=== PATIENT | male | born 1990 | race Caucasian/White ===

== ENCOUNTER 2017-06-29 15:29 | Emergency (ER) | payer OTHER ==
[~2017-06-29] VITALS: Ht 177.8 cm; Wt 100.0 kg
[2017-06-29 15:47] VITALS: BP 131/85; PULSE 104; RESP 18; TEMP 98.9; O2SAT 98
[2017-06-29] MEDS ORDERED: CENTCHW4 PO (15:57)
[2017-06-29] MEDS ORDERED: SODIUM CHLOR 0.9% 1000 ML INJ 1,000 ML IV ONE (16:00)
[2017-06-29 16:13] LABS: AUTOMATED NEUTROPHIL # 3.8 TH/MM3 (1.8-7.7); BASOPHIL % 0.2 % (0.0-2.0); EOSINOPHIL # 0.1 TH/MM3 (0-0.4); EOSINOPHIL % 0.9 % (0.0-4.0); HEMATOCRIT 45.1 % (39.0-51.0); HEMOGLOBIN 15.6 GM/DL (13.0-17.0); LYMPH % 23.7 % (9.0-44.0); LYMPHOCYTE # 1.5 TH/MM3 (1.0-4.8); MEAN CELL VOLUME 86.7 FL (80.0-100.0); MEAN CORPUSCULAR HGB CONC 34.6 % (32.0-36.0); MEAN PLATELET VOLUME 10.2 FL (7.0-11.0); MONO % 14.9 % (0.0-8.0); MONOCYTE # 0.9 TH/MM3 (0-0.9); NEUT % 60.3 % (16.0-70.0); PLATELET COUNT 141 TH/MM3 (150-450); RED CELL DISTRIBUTION WIDTH 13.6 % (11.6-17.2); WHITE BLOOD COUNT 6.4 TH/MM3 (4.0-11.0)
--- NOTE | 2017-06-29 16:14 | PD ---
HPI Chief Complaint: General Weakness Time Seen by Provider: 15:45 Travel History International Travel<30 days: No Contact w/Intl Traveler<30days: No Traveled to known affect area: No History of Present Illness HPI Patient is a 26-year-old male who presents to emergency room with complaints of generalized weakness for the past 5 days. Patient reports that he has been having myalgias, fevers and chills, sore throat. Reports no cough/congestion. 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 He has been taking ibuprofen and acetaminophen without relief of symptoms PFSH Past Medical History Medical History: Denies Significant Hx Diminished Hearing: No Tetanus Vaccination: > 5 Years Influenza Vaccination: Yes Past Surgical History Surgical History: No Previous Surgery Social History Alcohol Use: Yes (OCASSIONALLY) Tobacco Use: No Substance Use: No Allergies-Medications (Allergen,Severity, Reaction): Coded Allergies: No Known Allergies (Verified Allergy, Unknown, 06/29/17) Reported Meds & Prescriptions Reported Meds & Active Scripts Active Reported Centrum (Multiple Vitamins W/ Minerals) 1 Chew 1 Tab PO DAILY Review of Systems General / Constitutional: Positive: Fever, Chills Eyes: No: Visual changes HENT: Positive: Sore Throat, No: Headaches, Neck Stiffness, Neck Pain Cardiovascular: No: Chest Pain or Discomfort Respiratory: No: Shortness of Breath Gastrointestinal: No: Abdominal Pain Genitourinary: No: Dysuria Musculoskeletal: No: Pain Skin: No Rash Neurologic: No: Weakness Psychiatric: No: Depression Endocrine: No: Polydipsia Hematologic/Lymphatic: No: Easy Bruising Physical Exam Narrative GENERAL: Well-nourished, well-developed patient. SKIN: Focused skin assessment warm/dry. HEAD: Normocephalic. EYES: No scleral icterus. No injection or drainage. NECK: Supple, trachea midline. No JVD, + Cervical lymphadenopathy, posterior pharynx with erythema and pustules CARDIOVASCULAR: Regular rate and rhythm without murmurs, gallops, or rubs. RESPIRATORY: Breath sounds equal bilaterally. No accessory muscle use. GASTROINTESTINAL: Abdomen soft, non-tender, nondistended. MUSCULOSKELETAL: No cyanosis, or edema. BACK: Nontender without obvious deformity. No CVA tenderness. Data Data Last Documented VS Vital Signs Date Time Temp Pulse Resp B/P (MAP) Pulse Ox O2 Delivery O2 Flow Rate FiO2 06/29/17 15:47 98.9 104 18 131/85 (100) 98 06/29/17 15:40 Room Air Orders Orders Complete Blood Count With Diff (06/29/17 15:51) Basic Metabolic Panel (Bmp) (06/29/17 15:51) Monoscreen (06/29/17 15:51) Group A Rapid Strep Screen (06/29/17 15:51) Influenzae A/B Antigen (06/29/17 15:51) Iv Access Insert/Monitor (06/29/17 15:51) Sodium Chlor 0.9% 1000 Ml Inj (Ns 1000 M (06/29/17 16:00) Labs Laboratory Tests Test 06/29/17 15:55 White Blood Count 6.4 TH/MM3 Red Blood Count 5.20 MIL/MM3 Hemoglobin 15.6 GM/DL Hematocrit 45.1 % Mean Corpuscular Volume 86.7 FL Mean Corpuscular Hemoglobin 30.0 PG Mean Corpuscular Hemoglobin Concent 34.6 % Red Cell Distribution Width 13.6 % Platelet Count 141 TH/MM3 Mean Platelet Volume 10.2 FL Neutrophils (%) (Auto) 60.3 % Lymphocytes (%) (Auto) 23.7 % Monocytes (%) (Auto) 14.9 % Eosinophils (%) (Auto) 0.9 % Basophils (%) (Auto) 0.2 % Neutrophils # (Auto) 3.8 TH/MM3 Lymphocytes # (Auto) 1.5 TH/MM3 Monocytes # (Auto) 0.9 TH/MM3 Eosinophils # (Auto) 0.1 TH/MM3 Basophils # (Auto) 0.0 TH/MM3 CBC Comment DIFF FINAL Differential Comment Blood Urea Nitrogen 14 MG/DL Creatinine 1.01 MG/DL Random Glucose 92 MG/DL Calcium Level 9.3 MG/DL Sodium Level 137 MEQ/L Potassium Level 4.1 MEQ/L Chloride Level 103 MEQ/L Carbon Dioxide Level 29.0 MEQ/L Anion Gap 5 MEQ/L Estimat Glomerular Filtration Rate 89 ML/MIN MDM Medical Decision Making Medical Screen Exam Complete: Yes Emergency Medical Condition: Yes Medical Record Reviewed: Yes Interpretation(s) Vital Signs Date Time Temp Pulse Resp B/P (MAP) Pulse Ox O2 Delivery O2 Flow Rate FiO2 06/29/17 15:47 98.9 104 18 131/85 (100) 98 06/29/17 15:40 104 16 98 Room Air Differential Diagnosis Influenza, strep pharyngitis, viral syndrome Narrative Course 26 year old male who presents to ER with c/o of generalized weakness with myalgias with fever and chills for the past 5 days. IVF ordered. CBC & BMP Diagram 06/29/17 15:55 Calcium Level 9.3 Patient feeling better. Will follow up with his pcp and will return to ER as needed Diagnosis Primary Impression: Viral syndrome Additional Impression: Pharyngitis Qualified Codes: J02.0 - Streptococcal pharyngitis Patient Instructions: General Instructions Departure Forms: Tests/Procedures, Work Release Enter return to work date: Jul 01, 2017 Additional Instructions: Please follow up with your primary care doctor Return to ER as needed Med/Other Pt SpecificInfo: Prescription(s) given Scripts Amoxicillin-Clavulanate (Augmentin) 875-125 Mg Tab 1 TAB PO BID for Infection for 10 Days, #20 TAB 0 Refills Prov: Palmira Chávez DO 06/29/17 Disposition: 01 DISCHARGE HOME Condition: Stable Palmira Chávez DO Jun 29, 2017 16:14
[2017-06-29 16:27] LABS: CALCIUM 9.3 MG/DL (8.5-10.1); CREATININE 1.01 MG/DL (0.60-1.30)
[2017-06-29] MEDS ORDERED: AUGM875T3 PO (16:43)
== END 2017-06-29 18:08 | disposition home or self-care (01) ==
LOC: NEPB 15:29 → NEPD 18:08
DX: B34.9 Viral infection, unspecified (principal); J02.0 Streptococcal pharyngitis
CPT/HCPCS: 80048; 85025; 86308; 87081; 87804; 87880; 99284; J7030